=== PATIENT | male | born 1995 | race Caucasian/White ===

== ENCOUNTER 2017-08-29 15:58 | Emergency (ER) | payer MEDICAID ==
[~2017-08-29] VITALS: Ht 167.6 cm; Wt 93.0 kg
[2017-08-29 16:13] VITALS: BP 129/86
--- NOTE | 2017-08-29 16:16 | NUR ---
Patient ambulated to chair C. RN evaluating patient.
--- NOTE | 2017-08-29 16:30 | NUR ---
patient is a 21 year-old male who was brought in via private vehiclde for c/o generalized weakness and episode of vomiting. patient is alert and oriented x 4. respirations are even and unlabored. patient states " I don't feel good. I feel like i'm drunk without even drinking." patient currently denies any cough, dyspnea, diarrhea, headache, fever or chills. observed patient vomited x 1. awaiting md evaluation.
--- NOTE | 2017-08-29 16:36 | NUR ---
Dr. Rod evaluating patient.
[2017-08-29] MEDS ORDERED: ONDANSETRON 4 MG ODT PO ONE ×2 (16:45→18:00)
[2017-08-29] MEDS ORDERED: PROMETHAZINE 25 MG/ML VIAL IM ONE (18:00)
--- NOTE | 2017-08-29 18:15 | NUR ---
patient sittinig comfortably in chair. states " I feel better. " patient observed that have episode of vomiting x 1 while under observation. water offered to patient.
--- NOTE | 2017-08-29 19:00 | NUR ---
follow up made with patient. patient states "I'm feeling better, I think i'm ready to go home." patient states that dizziness has subsided. and nausea is resolving. vss. Dr. Bernal at bedside re-evaulation patient.
--- NOTE | 2017-08-29 19:20 | NUR ---
Patient discharged with v/s stable. Written and verbal after care instructions given and explained. Patient alert, oriented and verbalized understanding of instructions. Ambulatory with steady gait. All questions addressed prior to discharge. ID band removed. Patient advised to follow up with PMD. Rx of ZOFRAN 4 MG given. Patient educated on indication of medication including possible reaction and side effects. Opportunity to ask questions provided and answered.
[2017-08-29 19:42] VITALS: BP 130/77
== END 2017-08-29 19:20 | disposition home or self-care (01) ==
LOC: MED 15:58
DX: R11.2 Nausea with vomiting, unspecified (principal); R53.1 Weakness; F12.90 Cannabis use, unspecified, uncomplicated
CPT/HCPCS: 96372; 99283; J2550; S0119

== ENCOUNTER 2023-04-12 09:21 | Emergency (ER) | payer SELFPAY ==
[~2023-04-12] VITALS: Ht 170.2 cm; Wt 93.0 kg
[2023-04-12 09:37] VITALS: BP 132/81; PULSE 80; RESP 16; TEMP 97.5; O2SAT 100
[2023-04-12] MEDS ORDERED: IBUP-2213 PO (11:15)
[2023-04-12] MEDS ORDERED: IBUPROFEN 600 MG TAB PO ONE (11:15)
[2023-04-12] MEDS ORDERED: ACET-9882 PO (11:15)
[2023-04-12 11:34] VITALS: BP 132/81; PULSE 80; RESP 16; TEMP 97.5; O2SAT 100
== END 2023-04-12 11:34 | disposition home or self-care (01) ==
LOC: MED 09:21
DX: S42.031A Displaced fracture of lateral end of right clavicle, initial encounter for closed fracture (principal); R07.89 Other chest pain; M25.512 Pain in left shoulder; Y04.0XXA Assault by unarmed brawl or fight, initial encounter; Y93.89 Activity, other specified; Y92.89 Other specified places as the place of occurrence of the external cause; Y99.8 Other external cause status
CPT/HCPCS: 70450; 71045; 73030; 99284

== ENCOUNTER 2023-12-30 10:32 | Emergency (ER) | payer SELFPAY ==
[~2023-12-30] VITALS: Ht 170.2 cm; Wt 93.0 kg
[~2023-12-30 10:32] MED LIST: ACET-9882 PO; IBUP-2213 PO
[2023-12-30 10:57] VITALS: BP 148/106; PULSE 86; RESP 16; TEMP 97.5; O2SAT 99
[2023-12-30] MEDS: ALUMINUM HYD/MAG/SIMETHICONE 30 ML UDC PO ONE (11:59)
[2023-12-30] MEDS: ONDANSETRON 4 MG ODT PO ONE (12:01)
[2023-12-30 12:06] LABS: BASOPHILS % (AUTO) 0.5 % (0.0-2.0); EOSINOPHILS # (AUTO) 0.2 K/uL (0-0.4); HEMATOCRIT 45.8 % (36-52); HEMOGLOBIN 15.7 g/dL (12.0-18.0); LYMPHOCYTES % (AUTO) 31.2 % (20.5-51.1); MEAN CORPUSCULAR HEMOGLOBIN 31 pg (27-31); MEAN CORPUSCULAR HGB CONC 34 g/dL (33-37); MEAN CORPUSCULAR VOLUME 91.9 fL (80-94); MONOCYTES # (AUTO) 0.4 K/uL (0.8-1.0); MONOCYTES % (AUTO) 5.9 % (1.7-9.3); NEUTROPHILS # (AUTO) 3.7 K/uL (1.8-7.7); NEUTROPHILS % (AUTO) 59.4 % (42.2-75.2); PLATELET COUNT (AUTO) 238 K/uL (140-450); RED BLOOD CELL COUNT(AUTO) 4.99 MIL/uL (4.20-6.10); RED CELL DISTRIBUTION WIDTH 12.9 % (11.6-13.7); WHITE BLOOD COUNT (AUTO) 6.3 K/uL (4.8-10.8)
[2023-12-30 12:16] LABS: ANION GAP 12.1 (8-16); CALCIUM 9.5 mg/dL (8.5-10.1); CARBON DIOXIDE 28.5 mmol/L (21-32); CREATININE 0.9 mg/dL (0.6-1.3); POTASSIUM 4.6 mmol/L (3.5-5.1)
[2023-12-30 12:46] LABS: ALBUMIN 4.2 g/dL (3.4-5.0); BILIRUBIN,DIRECT 0.1 mg/dL (0.0-0.3); TOTAL BILIRUBIN 0.3 mg/dL (0.0-1.0); TOTAL PROTEIN, SERUM 7.7 g/dL (6.4-8.2)
[2023-12-30] MEDS ORDERED: SUCR-3 PO (12:57)
[2023-12-30] MEDS ORDERED: ONDA-188 SL (12:57)
[2023-12-30] MEDS ORDERED: OMEP20EC11 PO (12:57)
[2023-12-30 13:02] VITALS: BP 133/83; PULSE 72; RESP 16; TEMP 97.5; O2SAT 97
== END 2023-12-30 13:02 | disposition home or self-care (01) ==
LOC: MED 10:32
DX: A08.4 Viral intestinal infection, unspecified (principal); K21.9 Gastro-esophageal reflux disease without esophagitis; Z79.899 Other long term (current) drug therapy
CPT/HCPCS: 36415; 80048; 80076; 83690; 85025; 99283; Q0162